=== PATIENT | female | born 1935 | race Caucasian/White ===

== ENCOUNTER 2017-01-05 10:56 | Observation (INO) | payer MEDICARE, BC ==
[2017-01-05 13:24] LABS: Hematocrit 42 % (35-47); Hemoglobin 13.5 g/dl (12.0-16.0); Mean Corpuscular HGB Conc 32 g/dl (31-36); Mean Corpuscular Hemoglobin 29 pg (27-31); Mean Corpuscular Volume 91 fL (80-97); Mean Platelet Volume 8 um3 (7.4-10.4); Red Blood Count 4.61 10^6/ul (4.0-5.4); Red Cell Distribution Width 16 % (10.5-15); White Blood Count 18.1 10^3/ul (3.5-10.8)
[2017-01-05 13:36] LABS: BUN/Creatinine Ratio 13.6 (8-20); Calcium 9.6 mg/dL (8.6-10.3); EGFR Non-African American 47.4 (>60); Potassium 4.3 mmol/L (3.5-5.0); Total Bilirubin 0.9 mg/dL (0.2-1.0)
[2017-01-05 13:38] LABS: Troponin I 0.03 ng/mL (<0.04)
[2017-01-05 13:45] LABS: TSH (Thyroid Stimulating Horm) 3.36 mcIU/mL (0.34-5.60)
--- NOTE | 2017-01-05 13:58 | RAD ---
INDICATION: Syncope COMPARISON: January 24, 2016 TECHNIQUE: An AP portable view obtained at 1315 hours is submitted. FINDINGS: Bones/Soft Tissues: There are no acute bony findings. There is left-sided cardiac pacemaker Cardiomediastinal: The cardiomediastinal silhouette is normal. Lungs: There are no infiltrates. Pleura: There are no pleural effusions. Other: None IMPRESSION: NO ACTIVE DISEASE.
[2017-01-05] MEDS ORDERED: Iodixanol* (CONTRAST) 320 MG/ML 100 ML SDV IV ONE (14:38)
--- NOTE | 2017-01-05 15:16 | RAD ---
CLINICAL HISTORY: Left lower quadrant tenderness COMPARISON: August 18, 2006 TECHNIQUE: Multiple contiguous axial CT scans were obtained of the abdomen and pelvis after the administration of intravenous contrast. Coronal and sagittal multiplanar reformations are submitted for review. Oral contrast was administered. Delayed images were obtained through the abdomen and pelvis. FINDINGS: LUNG BASES: The lung bases are clear. LIVER: The liver is diffusely low in attenuation compared to the spleen. There is a simple cyst within the right lobe of liver.. BILE DUCTS: There is no intrahepatic or extrahepatic biliary dilatation. GALLBLADDER: The gallbladder is normal, without pericholecystic inflammatory change. PANCREAS: There is fatty atrophy of the head of the pancreas. SPLEEN: Normal in size and appearance. UPPER GI TRACT: Evaluation of the gastrointestinal tract is limited by incomplete gastric distention. The upper GI tract is unremarkable. SMALL BOWEL AND MESENTERY: There is no obstruction. Contrast reaches the colon. COLON: There is mucosal thickening of the descending colon with focal stranding of the pericolonic fat at the descending-sigmoid junction. There is an associated diverticulum in this region. ADRENALS: Normal bilaterally. KIDNEYS: The kidneys are normal in shape, size, contour, and axis. There is no hydronephrosis or nephrolithiasis. BLADDER: The bladder is smooth in contour. PELVIC ORGANS: The uterus and adnexa are grossly normal for technique. Again noted is ectasia of the left gonadal vein AORTA: There is calcific atherosclerotic disease of the abdominal aorta and its branches, without aneurysmal dilatation IVC: Unremarkable LYMPH NODES: There is no lymphadenopathy by size criteria. ABDOMINAL WALL: There is no evidence for abdominal wall hernia. BONES AND SOFT TISSUES: Degenerative changes are noted of the spine OTHER: None IMPRESSION: THERE IS INFLAMMATORY CHANGE OF THE DESCENDING AND SIGMOID COLON WITH QUESTIONABLE DIVERTICULUM AT THE DESCENDING-SIGMOID JUNCTION. NO OTHER DIVERTICULA ARE IDENTIFIED. WHILE THIS MAY REPRESENT DIVERTICULITIS, INFECTIOUS OR INFLAMMATORY COLITIS, WELL FOCAL UNDERLYING MUCOSAL NEOPLASM ARE ALSO WITHIN THE DIFFERENTIAL. RECOMMEND FOLLOW-UP UNTIL RESOLUTION TO EXCLUDE UNDERLYING PATHOLOGY OR CONSIDERATION OF CORRELATION WITH DIRECT VISUALIZATION.
[2017-01-05] MEDS ORDERED: Acetaminophen TAB* 325 MG PO PRN (15:39)
[2017-01-05] MEDS ORDERED: Ondansetron INJ* 2 MG/ML VIAL IV PRN (15:39)
[2017-01-05] MEDS ORDERED: metroNIDAZOLE IV 500 MG/100ML* 500 MG/100 ML BAG IVPB ONE (16:28)
[2017-01-05] MEDS ORDERED: Ciprofloxacin 400MG IVPREMIX(* 400 MG/200 ML BAG ONE (16:28)
[2017-01-05] MEDS: metroNIDAZOLE IV 500 MG/100ML* 500 MG/100 ML BAG IVPB SCH ×2 (16:38→23:51)
[2017-01-05] MEDS: Ciprofloxacin 400MG IVPREMIX(* 400 MG/200 ML BAG IVPB SCH (16:38)
[2017-01-05] MEDS: NS 0.9% 1000 ML* 1,000 ML IV SCH ×2 (17:57→19:08)
[2017-01-05] MEDS ORDERED: lamoTRIgine TAB(*) 100 MG PO SCH (21:00)
[2017-01-05] MEDS ORDERED: CMCS:Solifenacin(NF) 5 MG TAB PO SCH (21:00)
[2017-01-05] MEDS: Potassium Chlor TAB* 20 MEQ TAB.ER PO SCH (21:18)
--- NOTE | 2017-01-05 22:11 | RAD ---
HISTORY: Syncope COMPARISONS: January 24, 2016 TECHNIQUE: Multiple contiguous axial CT scans were obtained of the head without intravenous contrast. FINDINGS: HEMORRHAGE/INFARCT: There is no hemorrhage or acute infarct. MASSES/SHIFT: There is no mass or shift. EXTRA-AXIAL SPACES: There are no extra-axial fluid collections. SULCI AND VENTRICLES: The sulci and ventricles are normal in size and position for the patient's stated age. CEREBRUM: There is hypoattenuation of the periventricular and subcortical white matter. BRAINSTEM: There are no focal parenchymal abnormalities. CEREBELLUM: There are no focal parenchymal abnormalities. VESSELS: The vessels are grossly normal. PARANASAL SINUSES: The paranasal sinuses are clear. ORBITS: The orbits are unremarkable. BONES AND SOFT TISSUE: No bone or soft tissue abnormalities are noted. OTHER: None IMPRESSION: NO ACUTE INTRACRANIAL PATHOLOGY. CHRONIC SMALL VESSEL ISCHEMIC CHANGE
--- NOTE | 2017-01-05 22:11 | HP ---
HISTORY AND PHYSICAL: DATE OF ADMISSION: 01/05/17 PRIMARY CARE PROVIDER: Dr. Lau. ATTENDING PHYSICIAN WHILE IN THE HOSPITAL: Angel Dupree MD * (report dictated by Jaya Haq NP). CHIEF COMPLAINT: 1. Syncope. 2. Abdominal discomfort. HISTORY OF PRESENT ILLNESS: Ms. George is an 81-year-old female patient that comes in today complaining of abdominal discomfort. Initially, she has had a syncopal episode while sitting at breakfast this morning. The patient states that she remembers going to breakfast, she was sitting down. The next thing she knew, she had an episode where she slumped over and the next thing she realized , the help at [facility] was waking her up, the nurses were there and they had called 911 because of the episode of her passing out. She denied any chest pain prior to or after but she did state that she was having some abdominal discomfort and cramps in her lower abdomen right before this had happened. She denied having any nausea or vomiting associated with it. No chest pain, no palpitations and no shortness of breath. She has had an episode like this about a year ago. She does state that she has been having abdominal pain in the lower abdomen. It is cramping, discomfort that comes and goes away over the last 2 to 3 days with no alleviating factors or aggregating factors. She states that she has not had any blood per rectum. She states that she has not had any chills or fevers. There has been no nausea or vomiting and she says the pain is mostly right across the lower part of her abdomen starting in the left side and then radiating out to the right side. To her knowledge, she has never been told that she had diverticulosis. There was concern, however, because of the syncopal episode. She came to the ER. It was found that she had she had an elevated white count and ultimately on CAT scan, it was found that she had what appeared to be a possible colitis versus a diverticulitis. Hospitalist service was asked to evaluate for admission. PAST MEDICAL HISTORY: Significant for: 1. Hypertension. 2. Hyperlipidemia. 3. Breast cancer. 4. AFib. 5. Arthritis. 6. Seizure disorder. 7. Mild dementia. PAST SURGICAL HISTORY: 1. She has had a pacemaker placement. 2. Appendectomy. HOME MEDICATIONS: According to the list that was given to us includes: 1. Lamictal 100 mg at bedtime. 2. VESIcare 5 mg at bedtime. 3. Senna 2 tabs p.o. daily. 4. Xarelto 15 mg daily with meals. 5. Klor-Con 20 mEq p.o. b.i.d. 6. Prilosec 20 mg p.o. every other day. 7. Metoprolol XL 25 mg p.o. daily. 8. Milk of mag 30 cc daily as needed. 9. Cozaar 25 mg daily. 10. Digoxin 0.25 mg p.o. alternating with 0.125 mg p.o. every other day. 11. Vitamin D 1000 units p.o. daily. 12. Dulcolax 10 mg p.r. at bedtime as needed. 13. Tylenol 650 mg every 6 hours as needed for pain. ALLERGIES TO MEDICATIONS: Include PNEUMOCOCCAL VACCINE and SULFA. FAMILY HISTORY: Her mother had a history of CVA. Father had a history of NH. SOCIAL HISTORY: She does not smoke. She does not drink. She lives at [facility]. Surrogate decision maker is her . REVIEW OF SYSTEMS: There is no documented fever. She denied any significant weight change. There was no double vision. There is no ear discharge. She denied having any rhinorrhea. There was no sore throat. There is no thyroid enlargement. She denies having any chest pain. There is no orthopnea. There is no nocturnal dyspnea. There was abdominal pain per my HPI. No nausea, no vomiting. No dysuria. No frequency. There was a loss of consciousness. No pruritus. No skin ulcerations. Review of 14 systems completed, all others negative. PHYSICAL EXAMINATION GENERAL: At this time, Mrs. George is an 81-year-old female patient. She appears to be well nourished, well developed. She is sitting in the ER stretcher. She does not appear to be in any acute distress. VITAL SIGNS: Blood pressure 129/67, pulse 73, respirations 18, O2 saturation 97 %, temperature 97.8. HEENT: Head is atraumatic, normocephalic. Eyes: EOMs intact. Sclerae anicteric and not pale. Throat: Oral mucosa appears to be moist. No oropharyngeal erythema. NECK: Supple. LUNGS: Clear to auscultation bilaterally. No wheezes, rales or rhonchi. HEART: Sounds S1, S2. Regular rate and rhythm. No murmurs, rubs, or gallops. ABDOMEN: Soft, flat. There was tenderness in the left lower quadrant. Bowel sounds present. EXTREMITIES: Pulses 2+ throughout. She is able to move all 4 extremities with 5/5 strength. NEUROLOGIC: She is awake, alert, and oriented x3. Tongue midline. Numerical Control Machine Machinist were equal. No gross focal deficits. SKIN: Grossly intact. LABORATORY DATA: The labs today revealed WBC of 18.1, RBC of 4.61, hemoglobin of 13.5, hematocrit of 42, platelet count of 319. Sodium was 136, potassium 4.3 , chloride 102, bicarb 28, BUN 15, creatinine 1.10. Glucose 116, lactic 1.5, calcium 9.6, mag 2.0, total bilirubin 0.9, AST 10, ALT 11, alk phos 80, troponin 0.03, albumin 4.0, TSH 3.36. The patient had a chest x-ray obtained today, which revealed no active disease. She had abdominal pelvis CT scan today which impression read there is inflammatory change of the descending and sigmoid colon with questionable diverticulum at the descending sigmoid junction. No other diverticula are noted. While this may represent diverticulitis, infectious or inflammatory colitis as well as focal underlying mucosal neoplasm are also within the differential. Recommend followup until resolution to exclude underlying pathology or consideration of correlation with direct visualization. There was an EKG obtained today, which showed an atrial paced rhythm with rate of 90 which appears to be similar to her previous EKGs. Old medical records were reviewed. ASSESSMENT AND PLAN: Mrs. George is an 81-year-old female patient coming into the ER today with complaints of syncopal episode and abdominal discomfort. She will be admitted under observation status for: 1. Syncope. I suspect the syncope is probably related to a vasovagal syncope due to the fact that she was having some abdominal discomfort when this did happen. My plan will be to check orthostatics, place her on telemetry, get an echo, however, and cycle her troponins and try to interrogate her pacemaker while she is here and we will continue to follow. 2. Diverticulitis. I would like to get blood cultures. I have ordered Cipro and Flagyl for the patient. We will give normal saline at 100 cc an hour for 1 L and we will continue with clear liquids and then transition to full liquids. She will need repeat imaging probably after the course of antibiotics and close followup with her primary and possible direct visualization after the inflammation has subsided, but I suspect that this is diverticulitis; but again , she needs close followup and repeat imaging with her primary, Dr. Lau. 3. Hypertension. We will continue her meds as prescribed. 4. Hyperlipidemia. Continue meds as prescribed. 5. Breast cancer. Follow with her primary. 6. Atrial fibrillation. Continue Xarelto, digoxin. Rate is controlled. 7. Arthritis. Continue meds as prescribed. 8. Dementia. Continue with supportive care. 9. History of seizures. We will continue her Lamictal. We will order seizure precautions. 10. DVT prophylaxis. She is on Xarelto. 11. Code status. She wishes to be a DNR. 12. Fluids, electrolytes, nutrition. She can have a clear liquid diet. TIME SPENT: Time spent on the admission 60 minutes, greater than half the time spent face to face with the patient, obtaining my history and physical, the other half time spent going over the plan of care with the patient, implementing plan of care. I did discuss the plan of care with my attending, Dr. Dupree. He is in agreement. JAYA HAQ NP CC: Dr. Lau * [id number]/[facility] #: [id number] MTDNahid
[2017-01-06] MEDS: Ciprofloxacin 400MG IVPREMIX(* 400 MG/200 ML BAG IVPB SCH (04:23)
[2017-01-06 05:41] LABS: Hematocrit 40 % (35-47); Mean Corpuscular HGB Conc 33 g/dl (31-36); Mean Corpuscular Hemoglobin 30 pg (27-31); Mean Corpuscular Volume 90 fL (80-97); Mean Platelet Volume 8 um3 (7.4-10.4); Red Cell Distribution Width 15 % (10.5-15); White Blood Count 11.6 10^3/ul (3.5-10.8)
[2017-01-06 05:54] LABS: BUN/Creatinine Ratio 12.8 (8-20); Calcium 8.7 mg/dL (8.6-10.3); EGFR African American 73.1 (>60); EGFR Non-African American 56.9 (>60); Potassium 3.8 mmol/L (3.5-5.0)
[2017-01-06] MEDS ORDERED: Rivaroxaban TAB(*) 15 MG PO SCH (08:30)
[2017-01-06] MEDS ORDERED: Losartan TAB* 25 MG PO SCH (09:00)
[2017-01-06] MEDS ORDERED: Metoprolol Succinate XL TAB* 25 MG PO SCH (09:00)
[2017-01-06] MEDS ORDERED: Digoxin TAB* 0.125 MG PO SCH (09:00)
[2017-01-06] MEDS: metroNIDAZOLE IV 500 MG/100ML* 500 MG/100 ML BAG IVPB SCH (09:12)
[2017-01-06] MEDS ORDERED: Perflutren Lipid Microsphere* 3 ML VIAL ONE (09:51)
[2017-01-06] MEDS: Potassium Chlor TAB* 20 MEQ TAB.ER PO SCH (10:16)
--- NOTE | 2017-01-06 11:15 | ECHO ---
Patient: RISHI GARNER [facility] Rec#: [id number] : 1935 Date: 01/06/2017 Age: 81y Height: 162.56 cm / 64.0 in Weight: 77.11 kg / 170.0 lbs Sex: F BSA: 1.83 Room#: 444 Admit Date#: 01/05/2017 Type: Inpatient Referring: Jaya Haq NP Reading: Mane Maciel MD Mlt: Cate Palencia,BHARATCS,RDMS CC: Tobi Lau MD Transthoracic Echocardiogram Indication: Syncope BP: 127/61 HR: 77 Rhythm: NSR Indications Syncope Findings History: HTN, HLD, AFIB, breast cancer, dementia, pacemaker, seizures. Technical Comments: The study is technically limited due to poor acoustic windows. Completed 1035. Left Ventricle: The left ventricular chamber size is normal. Moderate concentric left ventricular hypertrophy is observed. Global left ventricular wall motion and contractility are within normal limits. There is normal left ventricular systolic function. The estimated ejection fraction is 50-55%. Abnormal left ventricular diastolic filling is observed, consistent with impaired relaxation. Left Atrium: The left atrium is mild to moderately dilated. Right Ventricle: The right ventricular chamber size and systolic function are within normal limits. A pacemaker wire is visualized in the right ventricle. Right Atrium: The right atrium is slightly dilated. A pacemaker wire is visualized in the right atrium. Aortic Valve: The aortic valve is trileaflet. The aortic valve leaflets are mildly thickened. There is mild aortic regurgitation. There is no evidence of aortic stenosis. Mitral Valve: There is mitral annular calcification. The mitral valve leaflets are mildly thickened. There is a trace of mitral regurgitation. There is no evidence of mitral stenosis. Tricuspid Valve: The tricuspid valve leaflets are normal. There is trace tricuspid regurgitation. Unable to estimate the right ventricular systolic pressure. Pulmonic Valve: The pulmonic valve appears normal. There is mild pulmonic regurgitation. Pericardium: There is no significant pericardial effusion. Aorta: There is mild dilatation of the ascending aorta.3.6 cm There is no dilatation of the aortic arch. There is mild dilatation of the aortic root. Pulmonary Artery: The main pulmonary artery is not well visualized. Venous: The inferior vena cava appears normal in size. There is a greater than 50% respiratory change in the inferior vena cava dimension. Summary: There are no significant changes when compared to the previous study done on 01/25/16 Conclusions Moderate concentric left ventricular hypertrophy is observed. Global left ventricular wall motion and contractility are within normal limits. There is normal left ventricular systolic function. The estimated ejection fraction is 50-55%. A pacemaker wire is visualized in the right ventricle. The aortic valve leaflets are mildly thickened. There is mild aortic regurgitation. There is a trace of mitral regurgitation. There is trace tricuspid regurgitation. Unable to estimate the right ventricular systolic pressure. There is no significant pericardial effusion. There is mild dilatation of the ascending aorta.3.6 cm There are no significant changes when compared to the previous study done on 01/25/16 Measurements Name Value Normal Range RVIDd (AP) 2D 1.6 cm (0.9 - 2.6) RAd ISD 4CH 5 cm (3.4 - 4.9) RA (A4C)W 3.2 cm (2.9 - 4.6) IVSd (2D) 1.4 cm (0.6 - 1) LVPWd (2D) 1.4 cm (0.6 - 1) LVIDd (2D) 3.6 cm (3.6 - 5.4) LVIDs (2D) 2.6 cm - LV FS (2D) 28 % (25 - 45) Aortic Annulus 2.3 cm (1.4 - 2.6) Ao root diameter (2D) 3.7 cm (2.1 - 3.5) Ascending Ao 3.6 cm (2.1 - 3.4) Aortic arch 2.6 cm (1.8 - 3.4) LA dimension (AP) 2D 3.6 cm (2.3 - 3.8) LAd ISD 4CH 6.9 cm (2.9 - 5.3) LA ISD 4CH W 5 cm (2.5 - 4.5) Name Value Normal Range LA ESV SP 4CH (A/L) 58.22 ml - LA ESV SP 2CH (A/L) 76.67 ml - LA ESV BP (A/L) 68.22 ml - LA ESV BP (A/L) index 37 ml/m2 - LA ESV SP 4CH (MOD) 53.63 ml - LA ESV SP 2CH (MOD) 71.26 ml - Name Value Normal Range MV E-wave Vmax 0.6 m/sec - MV deceleration time 177 msec - MV A-wave Vmax 1 m/sec - MV E:A ratio 0.6 ratio - LV lateral e' Vmax 0.06 m/sec - LV E:e' lateral ratio 10 ratio - Name Value Normal Range AV Vmax 1.5 m/sec - AV VTI 23.7 cm - AV peak gradient 9 mmHg - AV mean gradient 4.8 mmHg - LVOT Vmax 1.1 m/sec - LVOT VTI 17 cm - LVOT peak gradient 5 mmHg - LVOT mean gradient 2.4 mmHg - AR PHT 453.78 msec - AR peak gradient 98.99 mmHg - FIOR Vmax 0.5 m/sec - Name Value Normal Range RAP 8 mmHg - IVC diameter 1.1 cm - Name Value Normal Range PV Vmax 0.7 m/sec - PV peak gradient 2 mmHg -
[2017-01-06 12:00] VITALS: BP 130/62
--- NOTE | 2017-01-06 14:39 | PN ---
Subjective Date of Service: 01/06/17 Interval History: Patient seen and examined at bedside. She reports improvement to LLQ pain and denies any further diarrhea. She reports that she had 2 non-bloody loose stools yesterday. Denies CP, SOB, n/v. No further episodes of dizziness or syncope. No events noted on telemetry. Family History: Unchanged from Admission Social History: Unchanged from Admission Past Medical History: Unchanged from Admission Objective Active Medications: Acetaminophen (Tylenol Tab*) 650 mg PO Q4H PRN PRN Reason: FEVER/PAIN Digoxin (Lanoxin Tab*) 0.125 mg PO EVERY OTHER DAY [facility] Digoxin (Lanoxin Tab*) 0.25 mg PO EVERY OTHER DAY [facility] Last Admin: 01/06/17 10:18 Dose: 0.25 mg Ciprofloxacin/Dextrose (Cipro 400 Mg Ivpremix(*)) 400 mg in 200 mls @ 200 mls/ hr IVPB Q12H [facility] Last Admin: 01/06/17 04:23 Dose: 200 mls/hr Metronidazole/Sodium Chloride (Flagyl 500 Mg Ivpb*) 500 mg in 100 mls @ 100 mls /hr IVPB Q8H [facility] Last Admin: 01/06/17 09:12 Dose: 100 mls/hr Lamotrigine (Lamictal Tab(*)) 100 mg PO BEDTIME [facility] Last Admin: 01/05/17 21:18 Dose: 100 mg Losartan Potassium (Cozaar Tab*) 25 mg PO DAILY [facility] Last Admin: 01/06/17 10:16 Dose: 25 mg Metoprolol Succinate (Toprol Xl Tab*) 25 mg PO QAM [facility] Last Admin: 01/06/17 10:16 Dose: 25 mg Omeprazole (Prilosec Cap*) 20 mg PO EVERY OTHER DAY [facility] Ondansetron HCl (Zofran Inj*) 4 mg IV Q6H PRN PRN Reason: NAUSEA Potassium Chloride (Klor Con Er Tab*) 20 meq PO BID [facility] Last Admin: 01/06/17 10:16 Dose: 20 meq Rivaroxaban (Xarelto(*)) 15 mg PO DAILY WITH MEAL [facility] Last Admin: 01/06/17 10:14 Dose: 15 mg Solifenacin (Vesicare(Nf)) 5 mg PO BEDTIME [facility] Last Admin: 01/05/17 21:18 Dose: 5 mg Vital Signs 01/05/17 01/05/17 01/05/17 16:00 16:39 16:44 Temperature Pulse Rate 70 66 67 Respiratory Rate Blood Pressure 144/59 (mmHg) O2 Sat by Pulse 93 96 96 Oximetry 01/05/17 01/05/17 01/05/17 17:00 17:30 17:44 Temperature 98.4 F Pulse Rate 68 75 70 Respiratory 16 Rate Blood Pressure 143/59 134/72 142/60 (mmHg) O2 Sat by Pulse 95 95 98 Oximetry 01/05/17 01/05/17 01/05/17 20:00 20:05 23:22 Temperature 98.4 F 98.5 F Pulse Rate 65 69 73 Respiratory 20 16 Rate Blood Pressure 129/64 136/69 141/76 (mmHg) O2 Sat by Pulse 95 97 96 Oximetry 01/06/17 01/06/17 01/06/17 03:53 07:37 10:18 Temperature 98.4 F 97.6 F Pulse Rate 75 73 78 Respiratory 16 20 Rate Blood Pressure 127/61 153/71 (mmHg) O2 Sat by Pulse 96 97 Oximetry 01/06/17 11:37 Temperature 97.1 F Pulse Rate 65 Respiratory 20 Rate Blood Pressure 130/62 (mmHg) O2 Sat by Pulse 96 Oximetry Oxygen Devices in Use Now: None Appearance: Pleasant, elderly female, OOB to chair, NAD Eyes: PERRLA Ears/Nose/Mouth/Throat: Mucous Membranes Moist Neck: NL Appearance and Movements; NL JVP Respiratory: Symmetrical Chest Expansion and Respiratory Effort, Clear to Auscultation Cardiovascular: NL Sounds; No Murmurs; No JVD, RRR Abdominal: - - abd soft, BS present, LLQ tenderness with palpation Extremities: No Edema Skin: No Rash or Ulcers Neurological: Alert and Oriented x 3, NL Muscle Strength and Tone Lines/Tubes/Other Access: Clean, Dry and Intact Peripheral IV Nutrition: Taking PO's Result Diagrams: 01/06/17 05:04 01/06/17 05:04 Microbiology and Other Data: Microbiology 01/06/17 11:50 C. difficile DNA Amplification - Final Stool 027 Presumptive NEGATIVE Toxigenic C.diff NEGATIVE Assess/Plan/Problems-Billing Assessment: Ms. George is an 81 yo female with a PMH HTN, HLD, afib, BrCa, dementia, arthritis, and seizure disorder who presented to the ED on 01/05/17 with concern for syncope and abdominal pain. - Patient Problems (1) Syncope and collapse Code(s): R55 - SYNCOPE AND COLLAPSE Comment: Suspect vasovagal reaction secondary to dehydration and pain. No events noted on telemetry. Orthostatic VS negative. Pacer was interrogated, and there were no significant arrhythmias. Echo shows normal LVEF 50-55% and no significant valvular abnormalities. CT brain negative for acute pathology. (2) Abdominal pain Code(s): R10.9 - UNSPECIFIED ABDOMINAL PAIN Comment: Improved today, still some mild tenderness to LLQ Patient tolerating clear and full liquids. Advance diet as tolerated. Leukocytosis improving, has been afebrile. Continue PO ciprofloxacin and metronidazole x 10 day course. Outpatient f/u in 2-3 days to monitor progress. Outpatient CT abd/pelvis follow-up per PCP to monitor inflammatory change on CT. CT abd/pelvis shows inflammatory change of the descending and sigmoid colon with questionable diverticulum at the descending sigmoid junction. May represent diverticulitis, inflammatory/infectious colitis, or focal underlying mucosal neoplasm. (3) HTN (hypertension) Code(s): I10 - ESSENTIAL (PRIMARY) HYPERTENSION Comment: Normotensive Continue metoprolol and losartan. (4) Atrial fibrillation Code(s): I48.91 - UNSPECIFIED ATRIAL FIBRILLATION Comment: Continue metoprolol, digoxin, and rivaroxaban. (5) Seizure disorder Code(s): G40.909 - EPILEPSY, UNSP, NOT INTRACTABLE, WITHOUT STATUS EPILEPTICUS Comment: Continue lamotrigine. (6) Overactive bladder Code(s): N32.81 - OVERACTIVE BLADDER Comment: Continue Vesicare. (7) DVT prophylaxis Code(s): MHJ7525 - Comment: Xarelto (8) DNR (do not resuscitate) Onset Date: 08/27/14 Status and Disposition: OBV admit. D/c to home with close outpatient f/u.
[2017-01-06] MEDS ORDERED: Ciprofloxacin TAB* 500 MG PO ONE (15:29)
[2017-01-07] MEDS ORDERED: Omeprazole CAP* 20 MG PO SCH (09:00)
[2017-01-07] MEDS ORDERED: Digoxin TAB* 0.125 MG PO SCH (09:00)
--- NOTE | 2017-01-07 11:13 | DS ---
DISCHARGE SUMMARY: DATE OF ADMISSION: 01/05/17 DATE OF DISCHARGE: 01/06/17 PROVIDER: Aris Montes NP ATTENDING PHYSICIAN: Tiff Paez MD* (as dictated by Aris Montes NP ). PRIMARY CARE PHYSICIAN: Tobi Lau MD. PRIMARY DISCHARGE DIAGNOSES: 1. Syncope. 2. Abdominal pain, suspect secondary to diverticulitis. SECONDARY DISCHARGE DIAGNOSES: 1. Hypertension. 2. Hyperlipidemia. 3. History of breast cancer, now in remission. 4. Atrial fibrillation. 5. Arthritis. 6. Seizure disorder. 7. Mild dementia. 8. Pacemaker placement. HOME MEDICATIONS AT DISCHARGE: 1. Acetaminophen 650 mg q.6 hours p.r.n. 2. Dulcolax suppository 10 mg per rectum q.p.m. p.r.n. 3. Milk of magnesia 30 mL daily p.r.n. 4. Senna 2 tabs daily. 5. Losartan 25 mg daily. 6. Potassium chloride 20 mEq b.i.d. 7. Lamictal 100 mg at bedtime. 8. Digoxin 0.25 mg on even days and 0.125 mg on odd days. 9. Metoprolol succinate XL 25 mg q.a.m. 10. Xarelto 15 mg daily with meal. 11. VESIcare 5 mg at bedtime. 12. Omeprazole 20 mg every other day. 13. Cholecalciferol 1000 units daily. 14. Metronidazole 500 mg b.i.d. This is a new medication to treat diverticulitis. 15. Ciprofloxacin 500 mg b.i.d. This is a new medication for treatment of diverticulitis. HOSPITAL COURSE OF STAY: For full details, please refer to the H and P provided by nurse practitioner, Jaay Haq. In summary, Ms. George is an 81-year-old female patient who lives at [facility] who had a syncopal episode at breakfast. The patient did also endorse pain to the lower abdomen. She was brought into the ER for evaluation and was found to have elevated white count. A CT of the abdomen and pelvis was completed and it was read that there are inflammatory changes of the descending and sigmoid colon with questionable diverticulum at the descending sigmoid junction. No other diverticula were noted. While this may represent diverticulitis, infectious or inflammatory colitis as well as a focal underlying mucosal neoplasm are also within the differential. Recommend followup until resolution to exclude underlying pathology or consideration of correlation with direct visualization. The patient was admitted under observation and cultures were obtained. There was no growth seen on the blood cultures prior to discharge. The patient was given IV fluids and was started on Cipro and Flagyl. The patient did respond well to these treatments and reported an improvement in her abdominal pain the following day. She did not require any pain medication to manage her abdominal pain. She was able to tolerate a clear liquid diet and was able to be advanced to full liquids and able to tolerate this diet. In regards to her syncope, orthostatic vital signs were done and were negative. She did have a pacer interrogation, which did not show any acute events. She was monitored on telemetry, which did not show any ectopy or dysrhythmias. We also obtained an echocardiogram, which did not have concern for any acute valvular abnormalities or reduction of systolic function. Her echocardiogram showed normal left ventricular systolic function with an estimated ejection fraction of 50% to 55%. The patient also had a CT brain, which showed no acute pathology and only chronic small vessel ischemic changes. The patient was able to demonstrate safe ambulation and again had no further complaints of syncope or dizziness. It was felt that this most likely represented a vasovagal syncope possibly secondary to dehydration from the patient's reported diarrhea at home or perhaps secondary to pain. In the absence of fever, with her improving white blood cell count, the patient and her discussed the results and felt that they can manage the patient at home at [facility], stating that they have 24 hour nursing care available to them. The patient was recommended to follow up with a physician within 2 to 3 days for close followup to make sure that she is continuing to improve. They state that they are able to see Dr. Lau on Thursday. The patient was advised of signs to monitor for at home, which include fever, worsening pain, inability to tolerate p.o. intake, or intractable nausea or vomiting. In regards to her treatment plan, she has been prescribed ciprofloxacin and metronidazole for a 10 -day course. I did briefly discuss the case in side-consult with Dr. Hope who stated that the patient could be maintained on metronidazole 500 mg b.i.d., given her age, and that this dosing would sufficiently treat her infection and would probably be better tolerated. At the time of discharge, the patient is tolerating p.o. intake. She is afebrile. Her pain is well controlled, and there are no acute concerns. The patient is able to demonstrate safe ambulation. CONCERNS AT DISCHARGE: Ms. George will be discharged to home under care of her to [facility] with close followup with her PCP this week. DIET: Clear liquid diet, advance as tolerated to low-residue diet. ACTIVITY: As tolerated. CONDITION: Improved, stable. DISPOSITION: To home. TIME SPENT: Time spent on this discharge was approximately 50 minutes. Again, this is only a brief summary of the patient's hospital course of stay. For full details, please refer to the full medical records. If you have any further questions or need further assistance, please feel free to contact me at [phone]. ARIS MONTES NP CC: Tobi Lau MD* [id number]/[facility] #: [id number] NERISSA
--- NOTE | 2017-01-07 18:14 | ED ---
Purnima Dominguez Matthew, scribed for Hernandez Ramon MD on 01/05/17 at 1255 . Syncope/Near Syncope - HPI Summary HPI Summary: An 81 y/o female presents to the ED from [place] after a syncopal episode this morning. The patient does not remember having the syncopal episode. She states that while at breakfast, she developed sudden lower abdominal pain. Associated symptoms include diarrhea - yesterday, but none today, and she continues to have minimal abdominal pain. Last night, the patient was c/o of abdominal cramping and weakness. She denies vomiting, chest pain, and SOB currently. Per EMS, the patient was hypotensive upon arrival to the ED. The patient has not recently been on Abx. She was last at [facility] in August after breaking her arm. The patient's breast CA continues to be in remission after 16 years. - History Of Current Complaint Chief Complaint: EDSyncope Time Seen by Provider: 01/05/17 11:22 Hx Obtained From: Patient Onset/Duration: Sudden Onset, Resolved Context: Witnessed, Loss Of Consciousness Activity At Onset: At Rest Associated Head Trauma: No Associated Signs And Symptoms: Diarrhea - yesterday; none today, Weakness - last night - Allergies/Home Medications Allergies/Adverse Reactions: Allergies Allergy/AdvReac Type Severity Reaction Status Date / Time Sulfa Drugs Allergy Unknown Unknown Verified 09/28/15 13:08 Reaction Details Pneumococcal Polysaccharides AdvReac Mild See Comment Verified 09/28/15 13:08 [From Pneumovax] PMH/Surg Hx/FS Hx/Imm Hx Endocrine/Hematology History: Denies: Hx Anticoagulant Therapy, Hx Blood Disorders, Hx Blood Transfusions, Hx Diabetes, Hx Sickle Cell Disease, Hx Thyroid Disease, Hx Anemia, Hx Unexplained Bleeding Cardiovascular History: Reports: Hx Coronary Artery Disease, Hx Hypercholesterolemia, Hx Hypertension, Hx Pacemaker/ICD, Hx Syncope, Other Cardiovascular Problems/Disorders - Afib Denies: Hx Aneurysm, Hx Angina, Hx Angioplasty, Hx Auto Implanted Cardiovert Defib, Hx Cardiac Arrest, Hx Cardiomegaly, Hx Congenital Heart Disease, Hx Congestive Heart Failure, Hx Deep Vein Thrombosis, Hx Embolism, Hx Hypotension, Hx Peripheral Vascular Disease, Hx Rheumatic Fever, Hx Valvular Heart Disease Respiratory History: Reports: Hx Pneumonia Denies: Hx Asthma, Hx Chronic Bronchitis, Hx Chronic Obstructive Pulmonary Disease (COPD), Hx Lung Cancer, Hx Pleural Effusion, Hx Pulmonary Edema, Hx Pulmonary Embolism, Hx Seasonal Allergies, Hx Sleep Apnea, Other Respiratory Problems/Disorders GI History: Reports: Hx Gastroesophageal Reflux Disease History: Reports: Other Problems/Disorders Denies: Hx Acute Renal Failure, Hx Chronic Renal Failure, Hx Dialysis, Hx Kidney Infection, Hx Kidney Stones Musculoskeletal History: Denies: Hx Arthritis, Hx Back Problems, Hx Bursitis, Hx Congenital Bone Abnormalities, Hx Fibromyalgia, Hx Gout, Hx Orthopedic Injury, Hx Osteoporosis, Hx Scoliosis, Hx Tendonitis Sensory History: Reports: Hx Cataracts - removed, Hx Contacts or Glasses, Hx Vision Problem Denies: Hx Eye Injury, Hx Eye Prosthesis, Hx Glaucoma, Hx Legally Blind, Hx Macular Degeneration, Hx Deafness, Hx Hearing Aid, Hx Hearing Problem, Other Sensory Impairments Opthamlomology History: Reports: Hx Cataracts - removed, Hx Contacts or Glasses , Hx Vision Problem Denies: Hx Eye Injury, Hx Eye Prosthesis, Hx Glaucoma, Hx Legally Blind, Hx Macular Degeneration, Other Sensory Impairments Neurological History: Reports: Hx Transient Ischemic Attacks (TIA), Other Neuro Impairments/Disorders - CEREBROVASCULAR DISEASE, ALZHEIMERS Denies: Hx Dementia, Hx Developmental Delay, Hx Headaches, Hx Migraine, Hx Nerve Disease, Hx Seizures, Hx Spinal Cord Injury Psychiatric History: Denies: Hx Anxiety, Hx Eating Disorder, Hx Depression, Hx Panic Disorder, Hx Post Traumatic Stress Disorder, Hx Inpatient Treatment, Hx Community Mental Health Tx, Hx Schizophrenia, Hx Bipolar Disorder - pt and family denies, Hx Suicide Attempt, Hx of Violent Episodes Against Others, Hx Substance Abuse - Cancer History Cancer Type, Location and Year: BREAST Hx Chemotherapy: No Hx Radiation Therapy: Yes - Surgical History Surgery Procedure, Year, and Place: LUMPECTOMY LEFT BREAST, PACEMAKER Hx Anesthesia Reactions: No - Immunization History Date of Tetanus Vaccine: PT STATES UNSURE Date of Influenza Vaccine: NONE Infectious Disease History: No Infectious Disease History: Reports: Hx Tuberculosis Denies: Hx Clostridium Difficile, Hx Hepatitis, Hx Human Immunodeficiency Virus (HIV), Hx of Known/Suspected MRSA, Hx Shingles, Hx Known/Suspected VRE, Hx Known/Suspected VRSA, History Other Infectious Disease, Traveled Outside the [place] in Last 30 Days - Family History Known Family History: Positive: Cardiac Disease Family History: No FHx of breast CA - Social History Alcohol Use: Rare Alcohol Amount: about once a month Hx Substance Use: No Substance Use Type: Reports: None Hx Tobacco Use: No Smoking Status (MU): Never Smoked Tobacco Review of Systems Constitutional: Negative Negative: Fever, Chills Eyes: Negative Negative: Erythema ENT: Negative Negative: Sore Throat Cardiovascular: Negative Negative: Chest Pain Respiratory: Negative Negative: Shortness Of Breath, Cough Positive: Abdominal Pain - minimal and cramping last night , Diarrhea - yesterday; none today Genitourinary: Negative Negative: dysuria, hematuria Musculoskeletal: Negative Negative: Myalgia, Edema Skin: Negative Negative: Rash Positive: Weakness - last night , Syncope. Negative: Headache Psychological: Normal All Other Systems Reviewed And Are Negative: Yes Physical Exam Triage Information Reviewed: Yes Vital Signs On Initial Exam: Initial Vitals Temp Pulse Resp BP Pulse Ox 97.8 F 69 20 127/67 94 01/05/17 11:10 01/05/17 11:10 01/05/17 11:10 01/05/17 11:10 01/05/17 11:10 Vital Signs Reviewed: Yes Appearance: Positive: Well-Appearing, No Pain Distress Skin: Positive: Warm, Dry Head/Face: Positive: Other - Normocephalic; Atraumatic Eyes: Positive: Conjunctiva Clear Dental: Negative: Cervical Lymphadenopathy Neck: Positive: No Lymphadenopathy, Other: - Full ROM; No JVD Respiratory/Lung Sounds: Positive: Other - Normal Effort; No Respiratory Distress. Negative: Rales, Rhonchi, Stridor, Tracheal Deviation, Wheezes Cardiovascular: Positive: RRR, Other - Rhythm regular, rate normal, Heart sounds normal; Intact distal pulses; The pedal pulses are 2+ and symmetric. Radial pulses are 2+ and symmetric. Negative: Murmur Abdomen Description: Positive: Other: - LLQ tendenress; No Rebound. Negative: Distended, Guarding Bowel Sounds: Positive: Present Musculoskeletal: Negative: Edema Left, Edema Right Neurological: Positive: Alert, Oriented to Person Place, Time Psychiatric: Positive: Affect/Mood Appropriate - Joseph Coma Scale Coma Scale Total: 15 Diagnostics - Vital Signs Vital Signs Temp Pulse Resp BP Pulse Ox 01/05/17 11:10 97.8 F 72 20 127/67 94 - Laboratory Lab Results: Lab Results 01/05/17 01/05/17 01/05/17 Range/Units 12:30 12:30 12:30 WBC 18.1 H (3.5-10.8) 10^3/ul RBC 4.61 (4.0-5.4) 10^6/ul Hgb 13.5 (12.0-16.0) g/dl Hct 42 (35-47) % MCV 91 (80-97) fL MCH 29 (27-31) pg MCHC 32 (31-36) g/dl RDW 16 H (10.5-15) % Plt Count 319 (150-450) 10^3/ul MPV 8 (7.4-10.4) um3 Neut % (Auto) 81.0 (38-83) % Lymph % (Auto) 9.9 L (25-47) % [place] % (Auto) 8.0 (1-9) % Eos % (Auto) 0.4 (0-6) % Baso % (Auto) 0.7 (0-2) % Absolute Neuts (auto) 14.6 H (1.5-7.7) 10^3/ul Absolute Lymphs (auto) 1.8 (1.0-4.8) 10^3/ul Absolute Monos (auto) 1.5 H (0-0.8) 10^3/ul Absolute Eos (auto) 0.1 (0-0.6) 10^3/ul Absolute Basos (auto) 0.1 (0-0.2) 10^3/ul Absolute Nucleated RBC 0.01 10^3/ul Nucleated RBC % 0.1 Sodium 136 (133-145) mmol/L Potassium 4.3 (3.5-5.0) mmol/L Chloride 102 (101-111) mmol/L Carbon Dioxide 28 (22-32) mmol/L Anion Gap 6 (2-11) mmol/L BUN 15 (6-24) mg/dL Creatinine 1.10 H (0.51-0.95) mg/dL Est GFR ( Amer) 61.0 (>60) Est GFR (Non-Af Amer) 47.4 (>60) BUN/Creatinine Ratio 13.6 (8-20) Glucose 116 H (70-100) mg/dL Lactic Acid 1.5 (0.5-2.0) mmol/L Calcium 9.6 (8.6-10.3) mg/dL Magnesium 2.0 (1.9-2.7) mg/dL Total Bilirubin 0.90 (0.2-1.0) mg/dL AST 10 L (13-39) U/L ALT 11 (7-52) U/L Alkaline Phosphatase 80 (34-104) U/L Troponin I 0.03 (<0.04) ng/mL Total Protein 7.0 (6.4-8.9) g/dL Albumin 4.0 (3.2-5.2) g/dL Globulin 3.0 (2-4) g/dL Albumin/Globulin Ratio 1.3 (1-3) TSH 3.36 (0.34-5.60) mcIU/mL Result Diagrams: 01/06/17 05:04 01/06/17 05:04 Lab Statement: Any lab studies that have been ordered have been reviewed, and results considered in the medical decision making process. - Radiology CXR Xray Interpretation: No Acute Changes - IMPRESSION: NO ACTIVE DISEASE. Radiology Interpretation Completed By: Radiologist - EKG 11:41 Cardiac Rate: NL - 90 bpm EKG Interpretation: Atrial-paced complexes; No STEMI; Abnormal R-Wave Progression Course/Dx Assessment/Plan: An 81 y/o female presents to the ED from [place] after a syncopal episode this morning. The patient does not remember having the syncopal episode. She states that while at breakfast, she developed sudden lower abdominal pain. Associated symptoms include diarrhea - yesterday, but none today, and she continues to have minimal abdominal pain. Last night, the patient was c/o of abdominal cramping and weakness. She denies vomiting, chest pain, and SOB currently. Per EMS, the patient was hypotensive upon arrival to the ED. The patient has not recently been on Abx. Labs were reviewed. CXR shows no active disease. EKG shows 90 bpm with Atrial-paced complexes; No STEMI; Abnormal R-Wave Progression. Discussed the case with Dr. Dupree who will admit the patient into his services. - Diagnoses Provider Diagnoses: Syncope, Diarrhea - Physician Notifications Discussed Care Of Patient With: Dr. Dupree (Hospitalist) at 14:07 -- Notified of patient's history and will admit the patient into his services. Discharge - Discharge Plan Condition: Stable Disposition: ADMITTED TO [facility] The documentation as recorded by the Purnima santiago Matthew accurately reflects the service I personally performed and the decisions made by me, Hernandez Ramon MD.
== END 2017-01-06 16:30 | disposition home or self-care (01) ==
LOC: ED 10:56 → MEDTELE 15:36
PROVIDERS: ADMIT Internal Medicine; ATTEND Hospitalist
DX: R55 Syncope and collapse (principal); K57.92 Diverticulitis of intestine, part unspecified, without perforation or abscess without bleeding; R10.9 Unspecified abdominal pain; I10 Essential (primary) hypertension; E78.5 Hyperlipidemia, unspecified; I48.91 Unspecified atrial fibrillation; Z79.01 Long term (current) use of anticoagulants; I44.4 Left anterior fascicular block; G40.909 Epilepsy, unspecified, not intractable, without status epilepticus; F03.90 Unspecified dementia, unspecified severity, without behavioral disturbance, psychotic disturbance, mood disturbance, and anxiety; I51.7 Cardiomegaly; Z95.0 Presence of cardiac pacemaker; Z79.899 Other long term (current) drug therapy; Z88.2 Allergy status to sulfonamides; Z88.7 Allergy status to serum and vaccine; Z85.3 Personal history of malignant neoplasm of breast; M19.90 Unspecified osteoarthritis, unspecified site
CPT/HCPCS: 36415; 70450; 71010; 74177; 80048; 80053; 80162; 83605; 83735; 84443; 84484; 85025; 87040; 87493; 93005; 93306; 96365; 96366; 96367; 99284; A9270-GY; C8929; J0744; Q9967

== ENCOUNTER 2017-08-28 19:48 | Emergency (ER) | payer MEDICARE, OTHER ==
[2017-08-28] MEDS ORDERED: NS 0.9% 1000 ML* 1,000 ML IV ONE (20:01)
[2017-08-28 20:36] LABS: ABS Basophils 0.1 10^3/ul (0-0.2); ABS Eosinophils 0.4 10^3/ul (0-0.6); ABS Lymphocytes 1.6 10^3/ul (1.0-4.8); ABS Monocytes 1.3 10^3/ul (0-0.8); ABS Neutrophils 9.9 10^3/ul (1.5-7.7); ABS Nucleated RBC 0 10^3/ul; Eosinophil % 3.2 % (0-6); Hematocrit 39 % (35-47); Lymphocyte % 12.2 % (25-47); Mean Corpuscular HGB Conc 34 g/dl (31-36); Mean Corpuscular Hemoglobin 31 pg (27-31); Mean Corpuscular Volume 92 fL (80-97); Mean Platelet Volume 7 um3 (7.4-10.4); Nucleated Red Blood Cells % 0; Platelet Count 329 10^3/ul (150-450); Red Blood Count 4.21 10^6/ul (4.0-5.4); Red Cell Distribution Width 15 % (10.5-15); White Blood Count 13.5 10^3/ul (3.5-10.8)
[2017-08-28 20:44] LABS: INR 1.99 (0.77-1.02)
--- NOTE | 2017-08-28 20:45 | RAD ---
INDICATION: Headaches. Dizziness COMPARISON: CT brain October 11, 2015 TECHNIQUE: Noncontrast axial source images were acquired from the skull base to the vertex. FINDINGS: Ventricles/sulci: There is cortical atrophy with compensatory dilatation of the CSF spaces. Brain parenchyma: There is periventricular and subcortical white matter change compatible with chronic ischemia. Intracranial hemorrhage:None. Extra-axial spaces: There are no abnormal extra axial fluid collections or evidence of extra-axial mass. Calvarium: There is no calvarial fracture or other calvarial abnormality. Scalp: There is no evidence of scalp or extracalvarial soft tissue abnormality. Paranasal sinuses/mastoid: There are findings of mild chronic sinusitis. The mastoid air cells are clear. Other: None. IMPRESSION: Advanced cortical atrophy with chronic microvascular ischemic change. No acute findings
--- NOTE | 2017-08-28 20:52 | RAD ---
INDICATION: Weakness COMPARISON: January 05, 2017 TECHNIQUE: PA and lateral dual-energy views were obtained. FINDINGS: Bones/Soft Tissues: There are no acute bony findings. There is left-sided cardiac pacemaker Cardiomediastinal: The cardiac silhouette is mildly enlarged. Lungs: There are no infiltrates. Pleura: There are no pleural effusions. Other: None IMPRESSION: NO ACTIVE DISEASE.
[2017-08-28 20:54] LABS: EGFR Non-African American 47.3 (>60)
[2017-08-28] MEDS ORDERED: Acetaminophen TAB* 325 MG PO ONE (23:47)
[2017-08-28] MEDS ORDERED: Acetaminophen TAB* 325 MG ONE (23:48)
[2017-08-28 23:54] LABS: Urine Appearance Cloudy; Urine Blood 2+ (Negative); Urine Color Yellow; Urine Ketones 1+ (Negative); Urine Protein Negative (Negative); Urine Specific Gravity 1.014 (1.010-1.030); Urine Urobilinogen Negative (Negative)
[2017-08-29] MEDS ORDERED: Levofloxacin TAB* 500 MG PO ONE (00:02)
[2017-08-29 00:12] VITALS: BP 132/53
--- NOTE | 2017-09-04 20:32 | ED ---
Mahesh Dominguez Tiffany, scribed for Valeriano Olmos on 08/28/17 at 2005 . Complex/Multi-Sys Presentation - HPI Summary HPI Summary: This patient is an 82 year old F BIBA to [facility] with a chief complaint of weakness since three days ago. Symptoms aggravated by nothing. Symptoms alleviated by nothing. Patient reports normal appetite, cough, congestion and fever. Patient denies chest pain, abdominal pain, shortness of breath, dizziness , nausea, vomiting, and diarrhea. - History Of Current Complaint Time Seen by Provider: 08/28/17 19:56 Hx Obtained From: Patient Onset/Duration: Lasting Days - 3 days, Still Present Aggravating Factor(s): Nothing Alleviating Factor(s): Nothing Associated Signs And Symptoms: Positive: Other - normal appetite, cough, congestion, fever; NEGATIVE: chest pain, abdominal pain, shortness of breath, dizziness, nausea, vomiting, diarrhea - Allergies/Home Medications Allergies/Adverse Reactions: Allergies Allergy/AdvReac Type Severity Reaction Status Date / Time Sulfa Drugs Allergy Unknown Unknown Verified 02/24/17 12:59 Reaction Details Pneumococcal Polysaccharides AdvReac Mild See Comment Verified 02/24/17 12:59 [From Pneumovax] PMH/Surg Hx/FS Hx/Imm Hx Previously Healthy: No Endocrine/Hematology History: Denies: Hx Anticoagulant Therapy, Hx Blood Disorders, Hx Blood Transfusions, Hx Diabetes, Hx Sickle Cell Disease, Hx Thyroid Disease, Hx Anemia, Hx Unexplained Bleeding Cardiovascular History: Reports: Hx Coronary Artery Disease, Hx Hypercholesterolemia, Hx Hypertension, Hx Pacemaker/ICD, Hx Syncope, Other Cardiovascular Problems/Disorders - Afib Denies: Hx Aneurysm, Hx Angina, Hx Angioplasty, Hx Auto Implanted Cardiovert Defib, Hx Cardiac Arrest, Hx Cardiomegaly, Hx Congenital Heart Disease, Hx Congestive Heart Failure, Hx Deep Vein Thrombosis, Hx Embolism, Hx Hypotension, Hx Peripheral Vascular Disease, Hx Rheumatic Fever, Hx Valvular Heart Disease Respiratory History: Reports: Hx Pneumonia Denies: Hx Asthma, Hx Chronic Bronchitis, Hx Chronic Obstructive Pulmonary Disease (COPD), Hx Lung Cancer, Hx Pleural Effusion, Hx Pulmonary Edema, Hx Pulmonary Embolism, Hx Seasonal Allergies, Hx Sleep Apnea, Other Respiratory Problems/Disorders GI History: Reports: Hx Gastroesophageal Reflux Disease History: Reports: Other Problems/Disorders Denies: Hx Acute Renal Failure, Hx Chronic Renal Failure, Hx Dialysis, Hx Kidney Infection, Hx Kidney Stones, Hx Renal Disease Musculoskeletal History: Denies: Hx Arthritis, Hx Back Problems, Hx Bursitis, Hx Congenital Bone Abnormalities, Hx Fibromyalgia, Hx Gout, Hx Orthopedic Injury, Hx Osteoporosis, Hx Scoliosis, Hx Tendonitis Sensory History: Reports: Hx Cataracts - removed, Hx Contacts or Glasses, Hx Vision Problem Denies: Hx Eye Injury, Hx Eye Prosthesis, Hx Glaucoma, Hx Legally Blind, Hx Macular Degeneration, Hx Deafness, Hx Hearing Aid, Hx Hearing Problem, Other Sensory Impairments Opthamlomology History: Reports: Hx Cataracts - removed, Hx Contacts or Glasses , Hx Vision Problem Denies: Hx Eye Injury, Hx Eye Prosthesis, Hx Glaucoma, Hx Legally Blind, Hx Macular Degeneration, Other Sensory Impairments Neurological History: Reports: Hx Transient Ischemic Attacks (TIA), Other Neuro Impairments/Disorders - CEREBROVASCULAR DISEASE, ALZHEIMERS Denies: Hx Dementia, Hx Developmental Delay, Hx Headaches, Hx Migraine, Hx Nerve Disease, Hx Seizures, Hx Spinal Cord Injury Psychiatric History: Denies: Hx Anxiety, Hx Eating Disorder, Hx Depression, Hx Panic Disorder, Hx Post Traumatic Stress Disorder, Hx Inpatient Treatment, Hx Community Mental Health Tx, Hx Schizophrenia, Hx Bipolar Disorder - pt and family denies, Hx Suicide Attempt, Hx of Violent Episodes Against Others, Hx Substance Abuse - Cancer History Cancer Type, 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 Hx Chemotherapy: No Hx Radiation Therapy: Yes - Surgical History Surgery Procedure, Year, and Place: LUMPECTOMY LEFT BREAST, PACEMAKER Hx Anesthesia Reactions: No - Immunization History Date of Tetanus Vaccine: PT STATES UNSURE Date of Influenza Vaccine: NONE Infectious Disease History: Reports: Hx Tuberculosis Denies: Hx Clostridium Difficile, Hx Hepatitis, Hx Human Immunodeficiency Virus (HIV), Hx of Known/Suspected MRSA, Hx Shingles, Hx Known/Suspected VRE, Hx Known/Suspected VRSA, History Other Infectious Disease - Family History Known Family History: Positive: Cardiac Disease Family History: No FHx of breast CA - Social History [facility] Alcohol Use: Rare Alcohol Amount: about once a month Hx Substance Use: No Substance Use Type: Reports: None Hx Tobacco Use: No Smoking Status (MU): Never Smoked Tobacco Review of Systems Positive: Fever Positive: Other - Congestion Negative: Chest Pain Positive: Cough. Negative: Shortness Of Breath Positive: Other - Normal appetite. Negative: Abdominal Pain, Vomiting, Diarrhea , Nausea Neurological: Other - NEGATIVE: dizziness Positive: Weakness All Other Systems Reviewed And Are Negative: Yes Physical Exam - Summary Physical Exam Summary: Appearance: no pain distress, lethargic Skin: warm, dry, reflects adequate perfusion Head/face: normal Eyes: EOMI, WAYNE ENT: Dry mucous membranes Neck: supple, non-tender Respiratory: CTA, breath sounds present Cardiovascular: RRR, pulses symmetrical Abdomen: non-tender, soft Bowel: present Musculoskeletal: normal, strength/ROM intact Neuro: normal, sensory motor intact, A&Ox3 Triage Information Reviewed: Yes Vital Signs Reviewed: Yes Diagnostics - Laboratory Result Diagrams: 08/28/17 20:10 08/28/17 20:10 Lab Statement: Any lab studies that have been ordered have been reviewed, and results considered in the medical decision making process. - Radiology CXR Radiology Interpretation Completed By: Radiologist - No active disease. ED physician has reviewed this radiology report. 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 No acute findings. ED physician has reviewed this radiology report. - EKG 20:02 Cardiac Rate: NL EKG Rhythm: Sinus Rhythm - 83 BPM EKG Interpretation: No acute changes Complex Multi-Symp Course/Dx Course Of Treatment: This patient is an 82 year old F BIBA to [facility] with a chief complaint of weakness since three days ago. An EKG reveals sinus rhythm ( 83 BPM) and no acute changes. CXR reveals, per radiologist, No active disease. 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 No acute findings. Bloodwork/UA obtained. Patient will be discharged with prescription for Levaquin and follow up from PCP. The patient is agreeable with this plan. - Diagnoses Provider Diagnoses: Urinary tract infection Discharge - Discharge Plan Condition: Stable Disposition: HOME Prescriptions: Levofloxacin TAB* [Levaquin TAB*] 500 mg PO DAILY #6 tab Patient Education Materials: Urinary Tract Infection in Women (ED) Referrals: Tobi Lau MD [Primary Care Provider] - 3 Days Additional Instructions: Follow up with your primary care provider in 3 days. Return to the Emergency Room if current symptoms worsen or if new symptoms develop. The documentation as recorded by the Mahesh santiago Tiffany accurately reflects the service I personally performed and the decisions made by Nickolas liu Emmanuel.
== END 2017-08-29 00:38 | disposition home or self-care (01) ==
LOC: ED 19:48
DX: N39.0 Urinary tract infection, site not specified (principal); G31.9 Degenerative disease of nervous system, unspecified; Z88.2 Allergy status to sulfonamides; Z88.7 Allergy status to serum and vaccine
CPT/HCPCS: 36415; 70450; 71010; 80053; 81003; 81015; 83605; 83735; 83880; 84484; 85025; 85610; 85730; 87040; 87086; 93005; 96360; 96361; 99283; A9270-GY

== ENCOUNTER 2018-02-20 13:26 | Emergency (ER) | payer MEDICARE, OTHER ==
[2018-02-20] MEDS ORDERED: NS 0.9% 1000 ML* 1,000 ML IV ONE (13:34)
--- NOTE | 2018-02-20 14:03 | RAD ---
HISTORY: syncope COMPARISONS: August 28, 2017 VIEWS: 1: frontal portable view of the chest at 1:45 PM FINDINGS: LINES AND TUBES: A left-sided pacemaker is noted CARDIOMEDIASTINAL SILHOUETTE: The cardiomediastinal silhouette is normal for portable technique. PLEURA: The costophrenic angles are sharp. No pleural abnormalities are noted. LUNG PARENCHYMA: The lungs are clear. ABDOMEN: The upper abdomen is clear. There is no subphrenic gas. BONES AND SOFT TISSUES: No bone or soft tissue abnormalities are noted. IMPRESSION: NO ACTIVE CARDIOPULMONARY DISEASE.
[2018-02-20 14:56] LABS: ABS Basophils 0.1 10^3/ul (0-0.2); ABS Eosinophils 0.2 10^3/ul (0-0.6); ABS Lymphocytes 1.6 10^3/ul (1.0-4.8); ABS Monocytes 0.6 10^3/ul (0-0.8); ABS Neutrophils 5.6 10^3/ul (1.5-7.7); ABS Nucleated RBC 0 10^3/ul; Eosinophil % 2.3 % (0-6); Hematocrit 39 % (35-47); Hemoglobin 13.3 g/dl (12.0-16.0); Lymphocyte % 19.7 % (25-47); Mean Corpuscular HGB Conc 34 g/dl (31-36); Mean Corpuscular Hemoglobin 31 pg (27-31); Mean Corpuscular Volume 91 fL (80-97); Mean Platelet Volume 7.4 um3 (7.4-10.4); Nucleated Red Blood Cells % 0; Platelet Count 283 10^3/ul (150-450); Red Blood Count 4.33 10^6/ul (4.00-5.40); Red Cell Distribution Width 16 % (10.5-15); White Blood Count 8.1 10^3/ul (3.5-10.8)
[2018-02-20 15:01] LABS: INR 1.14 (0.77-1.02)
[2018-02-20 15:15] LABS: EGFR Non-African American 38.3 (>60)
[2018-02-20 17:20] VITALS: BP 122/69
--- NOTE | 2018-02-20 22:50 | ED ---
Alfonso Dominguez Tariq, scribed for Odilon Moreno MD on 02/20/18 at 1453 . Syncope/Near Syncope - HPI Summary HPI Summary: Pt is a 82 y/o female who presents to the ED s/p syncopal episode. Pt collapsed at a restaurant after attending a lawn service in which she spent about an hour and half in the sun with no fluids. She was able to get into a chair with the assistance of others, however, she was non-responsive, "breathing heavily" for a few minutes. Additional Sx include generalized weakness. Currently, she feels fine and denies any abdominal pain and CP. Lives at [facility] with 24 hour assistance and care. - History Of Current Complaint Chief Complaint: EDSyncope Time Seen by Provider: 02/20/18 14:05 Hx Obtained From: Patient Onset/Duration: Sudden Onset Timing: Minutes Context: Witnessed, Loss Of Consciousness Associated Head Trauma: No Aggravating Factor(s): Nothing Alleviating Factor(s): Nothing Associated Signs And Symptoms: Weakness, Other - Breathing hard - Allergies/Home Medications Allergies/Adverse Reactions: Allergies Allergy/AdvReac Type Severity Reaction Status Date / Time pneumococcal vaccine Allergy See Comment Verified 02/20/18 14:24 [From Pneumovax 23] Sulfa (Sulfonamide Allergy Rash Verified 02/20/18 14:23 Antibiotics) Home Medications: Home Medications Cholecalciferol (Vitamin D3) [Vitamin D3] 1,000 unit PO DAILY 02/20/18 [History Confirmed 02/20/18] Memantine XR CAP* [Namenda XR CAP*] 28 mg PO DAILY 02/20/18 [History Confirmed 02/20/18] Sodium Fluoride/Potassium Nit [Prevident 5000 Sensitive] 1 pst DT BID 02/20/18 [ History Confirmed 02/20/18] Solifenacin(NF) [Vesicare(NF)] 5 mg PO DAILY 02/20/18 [History Confirmed ] PMH/Surg Hx/FS Hx/Imm Hx Endocrine/Hematology History: Denies: Hx Anticoagulant Therapy, Hx Blood Disorders, Hx Blood Transfusions, Hx Diabetes, Hx Sickle Cell Disease, Hx Thyroid Disease, Hx Anemia, Hx Unexplained Bleeding Cardiovascular History: Reports: Hx Coronary Artery Disease, Hx Hypercholesterolemia, Hx Hypertension, Hx Pacemaker/ICD, Hx Syncope, Other Cardiovascular Problems/Disorders - Afib Denies: Hx Aneurysm, Hx Angina, Hx Angioplasty, Hx Auto Implanted Cardiovert Defib, Hx Cardiac Arrest, Hx Cardiomegaly, Hx Congenital Heart Disease, Hx Congestive Heart Failure, Hx Deep Vein Thrombosis, Hx Embolism, Hx Hypotension, Hx Peripheral Vascular Disease, Hx Rheumatic Fever, Hx Valvular Heart Disease Respiratory History: Reports: Hx Pneumonia Denies: Hx Asthma, Hx Chronic Bronchitis, Hx Chronic Obstructive Pulmonary Disease (COPD), Hx Lung Cancer, Hx Pleural Effusion, Hx Pulmonary Edema, Hx Pulmonary Embolism, Hx Seasonal Allergies, Hx Sleep Apnea, Other Respiratory Problems/Disorders GI History: Reports: Hx Gastroesophageal Reflux Disease History: Reports: Other Problems/Disorders Denies: Hx Acute Renal Failure, Hx Chronic Renal Failure, Hx Dialysis, Hx Kidney Infection, Hx Kidney Stones, Hx Renal Disease Musculoskeletal History: Denies: Hx Arthritis, Hx Back Problems, Hx Bursitis, Hx Congenital Bone Abnormalities, Hx Fibromyalgia, Hx Gout, Hx Orthopedic Injury, Hx Osteoporosis, Hx Scoliosis, Hx Tendonitis Sensory History: Reports: Hx Cataracts - removed, Hx Contacts or Glasses, Hx Vision Problem Denies: Hx Eye Injury, Hx Eye Prosthesis, Hx Glaucoma, Hx Legally Blind, Hx Macular Degeneration, Hx Deafness, Hx Hearing Aid, Hx Hearing Problem, Other Sensory Impairments Opthamlomology History: Reports: Hx Cataracts - removed, Hx Contacts or Glasses , Hx Vision Problem Denies: Hx Eye Injury, Hx Eye Prosthesis, Hx Glaucoma, Hx Legally Blind, Hx Macular Degeneration, Other Sensory Impairments Neurological History: Reports: Hx Transient Ischemic Attacks (TIA), Other Neuro Impairments/Disorders - CEREBROVASCULAR DISEASE, ALZHEIMERS Denies: Hx Dementia, Hx Developmental Delay, Hx Headaches, Hx Migraine, Hx Nerve Disease, Hx Seizures, Hx Spinal Cord Injury Psychiatric History: Denies: Hx Anxiety, Hx Eating Disorder, Hx Depression, Hx Panic Disorder, Hx Post Traumatic Stress Disorder, Hx Inpatient Treatment, Hx Community Mental Health Tx, Hx Schizophrenia, Hx Bipolar Disorder - pt and family denies, Hx Suicide Attempt, Hx of Violent Episodes Against Others, Hx Substance Abuse - Cancer History Cancer Type, 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 Hx Chemotherapy: No Hx Radiation Therapy: Yes - Surgical History Surgery Procedure, Year, and Place: LUMPECTOMY LEFT BREAST, PACEMAKER Hx Anesthesia Reactions: No - Immunization History Date of Tetanus Vaccine: PT STATES UNSURE Date of Influenza Vaccine: NONE Infectious Disease History: No Infectious Disease History: Reports: Hx Tuberculosis Denies: Hx Clostridium Difficile, Hx Hepatitis, Hx Human Immunodeficiency Virus (HIV), Hx of Known/Suspected MRSA, Hx Shingles, Hx Known/Suspected VRE, Hx Known/Suspected VRSA, History Other Infectious Disease, Traveled Outside the [place] in Last 30 Days - Family History Known Family History: Positive: Cardiac Disease Family History: No FHx of breast CA - Social History Alcohol Use: Rare Alcohol Amount: about once a month Hx Substance Use: No Substance Use Type: Reports: None Hx Tobacco Use: No Smoking Status (MU): Never Smoked Tobacco Review of Systems Positive: Other - Generalized weakness. 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) Negative: Abdominal Pain Neurological: Other - Non-responsive Positive: Syncope All Other Systems Reviewed And Are Negative: Yes Physical Exam - Summary Physical Exam Summary: General: well-appearing, no pain distress Skin: warm, color reflects adequate perfusion, dry Head: normal Eyes: EOMI, WAYNE ENT: oral [place] is dry Neck: supple, nontender Respiratory: CTA, breath sounds present Cardiovascular: RRR Abdomen: soft, nontender Bowel: present Musculoskeletal: normal, strength/ROM intact Neurological: sensory/motor intact, A&O x3 Psychological: affect/mood appropriate Triage Information Reviewed: Yes Vital Signs On Initial Exam: Initial Vitals Temp Pulse Resp BP Pulse Ox 99.3 F 69 15 111/74 95 02/20/18 13:58 02/20/18 13:58 02/20/18 13:58 02/20/18 13:58 02/20/18 13:58 Vital Signs Reviewed: Yes Diagnostics - Vital Signs Vital Signs Temp Pulse Resp BP Pulse Ox 02/20/18 13:58 99.3 F 69 15 111/74 95 - Laboratory Lab Results: Lab Results 02/20/18 02/20/18 02/20/18 Range/Units 14:45 14:45 14:45 WBC 8.1 (3.5-10.8) 10^3/ul RBC 4.33 (4.00-5.40) 10^6/ul Hgb 13.3 (12.0-16.0) g/dl Hct 39 (35-47) % MCV 91 (80-97) fL MCH 31 (27-31) pg MCHC 34 (31-36) g/dl RDW 16 H (10.5-15) % Plt Count 283 (150-450) 10^3/ul MPV 7.4 (7.4-10.4) um3 Neut % (Auto) 69.2 (38-83) % Lymph % (Auto) 19.7 L (25-47) % Long % (Auto) 8.0 H (0-7) % Eos % (Auto) 2.3 (0-6) % Baso % (Auto) 0.8 (0-2) % Absolute Neuts (auto) 5.6 (1.5-7.7) 10^3/ul Absolute Lymphs (auto) 1.6 (1.0-4.8) 10^3/ul Absolute Monos (auto) 0.6 (0-0.8) 10^3/ul Absolute Eos (auto) 0.2 (0-0.6) 10^3/ul Absolute Basos (auto) 0.1 (0-0.2) 10^3/ul Absolute Nucleated RBC 0 10^3/ul Nucleated RBC % 0 INR (Anticoag Therapy) (0.77-1.02) Sodium 140 (135-145) mmol/L Potassium 4.3 (3.5-5.0) mmol/L Chloride 108 (101-111) mmol/L Carbon Dioxide 26 (22-32) mmol/L Anion Gap 6 (2-11) mmol/L BUN 16 (6-24) mg/dL Creatinine 1.32 H (0.51-0.95) mg/dL Est GFR ( Amer) 49.3 (>60) Est GFR (Non-Af Amer) 38.3 (>60) BUN/Creatinine Ratio 12.1 (8-20) Glucose 100 (70-100) mg/dL Lactic Acid 1.6 (0.5-2.0) mmol/L Calcium 8.8 (8.6-10.3) mg/dL Magnesium 1.9 (1.9-2.7) mg/dL Total Bilirubin 0.50 (0.2-1.0) mg/dL AST 9 L (13-39) U/L ALT 8 (7-52) U/L Alkaline Phosphatase 60 (34-104) U/L Troponin I 0.01 (<0.04) ng/mL B-Natriuretic Peptide ( - 100) pg/mL Total Protein 5.7 L (6.4-8.9) g/dL Albumin 3.4 (3.2-5.2) g/dL Globulin 2.3 (2-4) g/dL Albumin/Globulin Ratio 1.5 (1-3) TSH 4.68 (0.34-5.60) mcIU/mL 02/20/18 02/20/18 Range/Units 14:45 14:45 WBC (3.5-10.8) 10^3/ul RBC (4.00-5.40) 10^6/ul Hgb (12.0-16.0) g/dl Hct (35-47) % MCV (80-97) fL MCH (27-31) pg MCHC (31-36) g/dl RDW (10.5-15) % Plt Count (150-450) 10^3/ul MPV (7.4-10.4) um3 Neut % (Auto) (38-83) % Lymph % (Auto) (25-47) % Long % (Auto) (0-7) % Eos % (Auto) (0-6) % Baso % (Auto) (0-2) % Absolute Neuts (auto) (1.5-7.7) 10^3/ul Absolute Lymphs (auto) (1.0-4.8) 10^3/ul Absolute Monos (auto) (0-0.8) 10^3/ul Absolute Eos (auto) (0-0.6) 10^3/ul Absolute Basos (auto) (0-0.2) 10^3/ul Absolute Nucleated RBC 10^3/ul Nucleated RBC % INR (Anticoag Therapy) 1.14 H (0.77-1.02) Sodium (135-145) mmol/L Potassium (3.5-5.0) mmol/L Chloride (101-111) mmol/L Carbon Dioxide (22-32) mmol/L Anion Gap (2-11) mmol/L BUN (6-24) mg/dL Creatinine (0.51-0.95) mg/dL Est GFR ( Amer) (>60) Est GFR (Non-Af Amer) (>60) BUN/Creatinine Ratio (8-20) Glucose (70-100) mg/dL Lactic Acid (0.5-2.0) mmol/L Calcium (8.6-10.3) mg/dL Magnesium (1.9-2.7) mg/dL Total Bilirubin (0.2-1.0) mg/dL AST (13-39) U/L ALT (7-52) U/L Alkaline Phosphatase (34-104) U/L Troponin I (<0.04) ng/mL B-Natriuretic Peptide 68 ( - 100) pg/mL Total Protein (6.4-8.9) g/dL Albumin (3.2-5.2) g/dL Globulin (2-4) g/dL Albumin/Globulin Ratio (1-3) TSH (0.34-5.60) mcIU/mL Result Diagrams: 02/20/18 14:45 02/20/18 14:45 Lab Statement: Any lab studies that have been ordered have been reviewed, and results considered in the medical decision making process. - Radiology CXR Xray Interpretation: No Acute Changes Radiology Interpretation Completed By: Radiologist - No active cardiopulmonary disease. ED physician reviewed this radiology report. - EKG 1346 Cardiac Rate: NL - Atrial pace at 90 BPM EKG Rhythm: Sinus Rhythm ST Segment: Normal 1512 Cardiac Rate: NL - 91 bpm EKG Rhythm: Sinus Rhythm EKG Interpretation: AV dual-paced rhythm with some inhibition, w/ being paced the QRS is wide Course/Dx Course Of Treatment: DISCUSSED RESULTS WITH THE PATIENT AND HER . PATIENT'S WAVE FORM IS NARROW COMPLEX WHEN ATRIAL PACED, IT IS WIDE COMPLEX WHEN VENTRICULARLY PACED. PATIENT ASYMPTOMATIC IN ED. DISCUSSED ADMISSION WITH THE PATIENT AND ; THEY DECLINED ADMISSION AND WILL F/U WITH PMD, RETURN IF WORSE. - Diagnoses Provider Diagnoses: Syncope Discharge - Sign-Out/Discharge Documenting (check all that apply): Discharge/Admit/Transfer - Discharge - Discharge Plan Condition: Stable Disposition: HOME Patient Education Materials: Syncope (ED), Syncope in Older Adults (ED) Referrals: Tobi Lau MD [Primary Care Provider] - Additional Instructions: FOLLOW UP WITH YOUR DOCTOR. RETURN TO THE EMERGENCY DEPARTMENT FOR ANY WORSENING OF YOUR CONDITION; CHEST PAIN, SHORTNESS OF BREATH, YOU FEEL ILL, YOU PASS OUT OR QUESTIONS OR CONCERNS. - Billing Disposition and Condition Condition: STABLE Disposition: Home The documentation as recorded by the scribAlfonso almendarez Tariq accurately reflects the service I personally performed and the decisions made by me, Odilon Moreno MD.
== END 2018-02-20 17:19 | disposition home or self-care (01) ==
LOC: ED 13:26
DX: R55 Syncope and collapse (principal); R53.1 Weakness; I25.10 Atherosclerotic heart disease of native coronary artery without angina pectoris; Z87.19 Personal history of other diseases of the digestive system; Z95.0 Presence of cardiac pacemaker; Z85.3 Personal history of malignant neoplasm of breast; I10 Essential (primary) hypertension
CPT/HCPCS: 36415; 71045; 80053; 83605; 83735; 83880; 84443; 84484; 85025; 85610; 93005; 99283